=== PATIENT | female | born 1980 | race African-American/Black ===

== ENCOUNTER 2019-12-12 21:21 | Emergency (ER) | payer BC ==
[~2019-12-12] VITALS: Ht 149.9 cm; Wt 79.7 kg
[~2019-12-12 21:21] MED LIST: ABILIFY; ABILIFY 5 MG TAB5 M1 PO; ACYCLOVIR 400400 M1 PO; AMBIEN 10 MG TA10 MG PO; AMBIEN 5 MG TABL5 M1 PO; BENTYL20 MG PO; BUSPAR30 MG; CARAFATE 11 GM/10 M1 PO; CIPROFLOXACIN500 M1 PO; COLACE100 MG PO; DIFLUCAN150 MG PO; DOXYCYCLINE 10100 MG PO; EFFEXOR 5050 MG/1 T1; FLAGYL500 MG PO; HYDROXYZINE HCL25 M1 GT; IBUPROFEN 600600 M1 PO; IMITREX6 MG/0.5 M SQ; IRON325 PO; LAMICTAL; LATUDA PO; LIDOCAINE VISC100 M1 TOP; LITHIUM CARBON300 M7 PO; MACROBID 100 M100 M1 PO; METFORMIN HCL500 MG PO; MIRALAX17 GM PO; NEURONTIN 300300 M1; NORCO 5-325 TA1 EACH PO; NYSTATIN15 GM TP; PHENERGAN 25 MG25 M1 PO; PROVERA2.5 MG PO; PROZAC20 MG; RANITIDINE 150150 MG; REMERON15 MG PO; SEROQUEL 100 M100 M2; SERTRALINE HCL50 MG PO; SLEEP MEDS; SONATA5 M1; TRAZODONE 150150 M1; ULTRAM 50MG TAB50 MG PO; WELLBUTRIN XL300 M1 PO
[2019-12-12 22:10] LABS: URINE BILIRUBIN NEGATIVE (Negative); URINE BLOOD NEGATIVE (Negative); URINE CLARITY CLEAR; URINE COLOR YELLOW; URINE GLUCOSE-RANDOM* NEGATIVE (Negative); URINE KETONES NEGATIVE (Negative); URINE LEUKOCYTES-REFLEX TRACE (Negative); URINE NITRITE-REFLEX NEGATIVE (Negative); URINE PROTEIN (DIPSTICK) NEGATIVE (Negative); URINE UROBILINOGEN 0.2 E.U./dl (0.2-1.0)
[2019-12-12 22:30] LABS: ABSOLUTE NEUTROPHILS 6.9 thou/uL (1.4-8.2); BASOPHILS 0.5 % (0.0-2.0); EOSINOPHILS 2.1 % (0.0-3.0); HEMOGLOBIN 12.8 gm/dL (12.0-15.0); LYMPHOCYTES 29.7 % (24.0-44.0); MCH 29.2 pg (26.0-34.0); MCHC 33.6 g/dL (28.0-37.0); MCV 87.1 fL (80.0-100.0); MONOCYTES 6.8 % (1.0-8.0); PLATELET COUNT 317 thou/uL (150-400); POLYS 60.9 % (36.0-66.0); RBC 4.37 mil/uL (4.20-5.00); RDW 13.3 % (10.5-14.5); WBC 11.4 thou/uL (4.0-11.0)
[2019-12-12 22:39] LABS: CALCIUM 9.2 mg/dL (8.5-10.1); CREATININE 0.9 mg/dL (0.6-1.0); POTASSIUM 3.4 mmol/L (3.5-5.1)
[2019-12-12 22:45] LABS: ALBUMIN 3.8 g/dL (3.4-5.0); TOTAL BILIRUBIN 0.3 mg/dL (<0.1-1.0); TOTAL PROTEIN 7.6 g/dL (6.4-8.2)
[2019-12-12 23:50] VITALS: BP 126/75
== END 2019-12-12 23:50 | disposition home or self-care (01) ==
LOC: ER 21:21
PROVIDERS: Emergency Medicine
DX: R06.02 Shortness of breath (principal); J45.909 Unspecified asthma, uncomplicated; F32.9 Major depressive disorder, single episode, unspecified; F41.9 Anxiety disorder, unspecified; Z98.890 Other specified postprocedural states